=== PATIENT | female | born 1970 | race Caucasian/White ===

== ENCOUNTER 2022-12-06 16:14 | Emergency (ER) | payer BC, SELFPAY ==
[2022-12-06 16:23] VITALS: BP 130/76; PULSE 99; RESP 18; TEMP 36.9; O2SAT 98
--- NOTE | 2022-12-06 16:32 | ED.URI ---
HPI - URI/Sore Throat General Chief Complaint: Upper Respiratory Infection Stated Complaint: Congestion,Headache Time Seen by Provider: 12/06/22 16:52 Source: patient, RN notes reviewed and old records reviewed Mode of arrival: ambulatory Limitations: no limitations History of Present Illness HPI Narrative: 52-year-old female presents to the [facility] with sinus congestion and a frontal headache for 2 days. Has not taken anything for her symptoms. Denies fevers. Denies chest pain or shortness of breath. No abdominal pain Related Data Allergies Allergy/AdvReac Type Severity Reaction Status Date / Time amoxicillin Allergy Unknown Hives Verified 12/06/22 16:28 bupropion Allergy Unknown Hives Verified 12/06/22 16:28 methimazole Allergy Unknown Hives Verified 12/06/22 16:28 Sulfa (Sulfonamide Allergy Unknown Hives Verified 12/06/22 16:28 Antibiotics) Review of Systems Review of Systems: All systems reviewed & are unremarkable except as noted in HPI and below Constitutional: Constitutional: Reports no additional constitutional complaints Eyes: Eyes: Reports no additional eye complaints ENT: Reports as per HPI Cardiovascular: Cardiovascular: Reports no additional cardiovascular complaints, Denies chest pain and Denies dyspnea Respiratory: Respiratory: Reports no additional respiratory complaints, Denies chest congestion, Denies cough and Denies dyspnea Gastrointestinal: Gastrointestinal: Reports no additional gastrointestinal complaints, Denies abdominal pain, Denies nausea and Denies vomiting Musculoskeletal: Musculoskeletal: Reports no additional musculoskeletal complaints Integumentary/Breasts: Skin/Breast: Reports system reviewed and no additional complaints, except as docu Neurologic: Reports system reviewed and no additional complaints, except as documented Psychiatric: Psychiatric: Reports no additional psychiatric complaints Allergic/Immunologic: Allergic/Immunologic: Reports no additional allergic/immunologic complaints PMFSH Social History Social History Smoking status: Former smoker Smoking end date: 11/17/09 Alcohol intake: current Comments At the time of my signature, I reviewed and agree with the nursing past medical, surgical, social, and family history. There is no relevant family history pertinent to the patient complaint. Exam Const: General: cooperative, healthy appearing, comfortable, no acute distress, well developed, alert and well nourished Nutritional Appearance: well nourished Orientation/consciousness: patient oriented x3 Limitations: no limitations HENMT: Head: normal to inspection Ears: hearing grossly normal bilaterally and external ears normal Face/Nose/Sinus: Normal external nose present, Normal nares present, Normal nasal mucous membranes and turbinates present and normal facial exam Face and sinus: normal facial exam Mouth: Yes Normal oral and palatal mucosa present, Yes lip normal and Yes moist mucous membranes Throat: posterior oropharynx normal and uvula midline Eyes: General: appearance normal, both eyes and all related structures Alignment and Position: alignment normal Periorbital: periorbital findings normal Conjunctivae: conjunctivae normal Pupils: Equal, round and reactive pupils present EOM: EOMs intact bilaterally Neck: Neck: normal visual inspection, full ROM, no lymphadenopathy and no meningeal signs Chest: Chest palpation & inspection: normal inspection of the chest Resp: Effort & Inspection: normal respiratory effort and able to speak in complete sentences Auscultation: clear to auscultation bilaterally, no crackles, no rales, no rhonchi and no wheezes Cardio: Rate: regular rate Rhythm: regular rhythm Back/Spine/Pelvis: Cervical Spine: cervical ROM normal Thoracic/Lumbar Spine: No thoracic spinal tenderness Skin: General skin exam: normal color and no rashes or lesions noted Lesions: n
== END 2022-12-06 17:03 | disposition home or self-care (01) ==
PROVIDERS: Emergency Provider Nurse Practitioner
DX: J32.9 Chronic sinusitis, unspecified (principal); Z87.891 Personal history of nicotine dependence; Z20.822 Contact with and (suspected) exposure to COVID-19
CPT/HCPCS: 87426; 87804; 99213; C9803; G0463

== ENCOUNTER → 2023-08-07 15:27 | Outpatient (CLI) | payer BC, SELFPAY ==
--- NOTE | ~2023-08-07 | US_ITS ---
Thyroid ultrasound. Clinical History: Thyroid nodule Findings: Real-time sonography of the thyroid gland was performed. The right lobe measures 4.6 x 1.5 x 1.1 cm. The left lobe measures 5.3 x 2.2 x 1.6 cm. The isthmus is 2 mm in AP diameter. There is a 1.1 x 0.7 0.8 cm heterogeneous, hypoechoic circumscribed nodule at the right lower pole. T here is an additional 0.5 cm hypoechoic nodule at the right lower pole. There is a dominant heterogeneous nodule at the left lower pole measuring 2.7 x 1.8 x 1.6 cm, with so me peripheral calcification and mixed echogenicity. There is a 0.9 cm cystic nodule at the left midpo le. Impression: Bilateral thyroid nodules, as detailed above. Given size of the dominant heterogeneous nodule at the left lower pole, FNA recommend to establish a histologic diagnosis.. Reviewed, dictated and finalized at [facility]. Impression: Bilateral thyroid nodules, as detailed above. Given size of the dominant hetero geneous nodule at the left lower pole, FNA recommend to establish a histologic diagnosis..
== END ==
PROVIDERS: PCP Nurse Practitioner; Visit Provider Nurse Practitioner
DX: E04.2 Nontoxic multinodular goiter (principal)
CPT/HCPCS: 76536

== ENCOUNTER 2025-01-17 16:52 | Emergency (ER) | payer BC, SELFPAY ==
[2025-01-17 16:57] VITALS: BP 115/75; PULSE 118; RESP 24; TEMP 37.7; O2SAT 97
--- NOTE | 2025-01-17 17:11 | ED.URI ---
HPI - URI/Sore Throat General Chief Complaint: Upper Respiratory Infection Stated Complaint: flu like Time Seen by Provider: 01/17/25 17:11 Source: patient Mode of arrival: ambulatory Limitations: no limitations History of Present Illness HPI Narrative: 54-year-old female presents with complaint of cough, congestion, fatigue, body aches, chills, fever starting yesterday evening. Denies nausea vomiting diarrhea. No chest pain or shortness of breath. Taking Tylenol to treat fever. Took a does prior to arrival. All systems reviewed and negative except as noted above. Related Data Allergies Allergy/AdvReac Type Severity Reaction Status Date / Time amoxicillin Allergy Unknown Hives Verified 01/17/25 16:58 bupropion Allergy Unknown Hives Verified 01/17/25 16:58 methimazole Allergy Unknown Hives Verified 01/17/25 16:58 Sulfa (Sulfonamide Allergy Unknown Hives Verified 01/17/25 16:58 Antibiotics) Review of Systems Review of Systems: CONSTITUTIONAL: Reports fever, chills, or sweats. EYES: Denies visual changes, redness, or discharge. ENT: reports rhinorrhea, congestion. Denies sore throat, or otalgia. CARDIOVASCULAR: Denies chest pain, palpitations, or edema. RESPIRATORY: reports cough. Denies dyspnea. GASTROINTESTINAL: Denies abdominal pain, nausea, vomiting, or diarrhea. GENITOURINARY: Denies dysuria or hematuria. SKIN: Denies rash or itching. MUSCULOSKELETAL: Denies back pain, joint pain, or myalgia. NEUROLOGIC: Denies headache, numbness, or weakness. PSYCHIATRIC: Denies anxiety or depression. All other systems reviewed are negative, except as documented in HPI. PMFSH Social History Social History Smoking status: Former smoker Smoking end date: 11/17/09 Alcohol intake: current Comments At time of signature, agree with nursing past medical, surgical, social and family history. There is no relevant family history pertinent to the presenting complaint. Exam Narrative: GENERAL: This is a well-nourished, well-developed patient, ill-appearing but in no acute distress HEAD: normocephalic, atraumatic. EYES: PERRL. Sclera clear/white. Vision is grossly intact. EARS: External ears normal, auditory canals clear and without drainage, TMs normal without perforation. Hearing grossly intact. NOSE: External nose normal with no obvious nasal discharge, nares without redness, no rhinorrhea. THROAT: Mucous membranes moist, posterior pharynx clear. NECK: Neck supple, non-tender without lymphadenopathy, masses or thyromegaly. CARDIOVASCULAR: Regular rate and rhythm without murmurs, gallops, or rubs. RESPIRATORY: Clear to auscultation. Breath sounds equal bilaterally. No wheezes, rales, or rhonchi. SKIN: warm, Dry, intact with no suspicious lesions or rash, good texture and turgor. NEURO: awake, alert, and oriented to person, place and time. There were no obvious focal neurologic abnormalities. EXTREMITIES: No joint tenderness, effusion, or edema noted. Course Course Level of Care: Express Care Visit Vital Signs Vital signs: Vital Signs Temperature 37.7 C H 01/17/25 16:57 Pulse Rate 118 H 01/17/25 16:57 Respiratory Rate 24 H 01/17/25 16:57 Blood Pressure 115/75 01/17/25 16:57 Pulse Oximetry 97 01/17/25 16:57 Oxygen Delivery Room Air 01/17/25 16:57 Temperature 37.7 C H 01/17/25 16:57 Pulse Rate 118 H 01/17/25 16:57 Respiratory Rate 24 H 01/17/25 16:57 Blood Pressure 115/75 01/17/25 16:57 Pulse Oximetry 97 01/17/25 16:57 Oxygen Delivery Room Air 01/17/25 16:57 reviewed MDM - URI/Sore Throat MDM Narrative Medical decision making narrative: negative COVID and influenza. Testing less than 24 hours after symptoms started. It is possible false negative. Patient is well-appearing, nontoxic. Lungs clear to auscultation. Hemodynamically stable. Recommend increase fluids and take [id number] medications to treat viral symptoms. Patient agrees with plan of care. Please be advised this is a medical document. It is intended for [id number] communication. It is written in medical language and may contain unfamiliar abbreviations or verbiage. Medical documents are intended to carry relevant information, facts as evident, and the clinical opinion of the practitioner at the time of the encounter. This report may have been done utilizing a voice recognition system. Attempts have been made to correct errors. However, there may be uncorrected grammatical, spelling, and recognition errors present. The file time of this note does not necessarily represent the time of service. Differential Diagnosis Differential diagnosis: Likely upper respiratory infection, viral infection and influenza Discharge Plan Discharge Clinical Impression: Viral upper respiratory tract infection with cough Patient Disposition: Home, Self-Care Condition: Stable Instructions: Upper Respiratory Infection (ED) Additional Instructions: Your influenza and COVID test were negative today. Your symptoms are viral and may last 10-14 days. Take Tylenol every 6-8 hours as needed for pain and fever. Take [id number] Mucinex DM to treat cough. Drink at least 64 oz water a day. See your doctor if symptoms are not improving. If you have chest pain or shortness of breath or concern for dehydration go to the ER. Patient Language: Uzbek Prescriptions: No Action methylprednisolone [Medrol (Antione)] 4 mg tablets,dose pack See Rx Instructions PO .COMPLEX Qty: 21 0RF Rx Instructions: orally per package directions fluticasone propionate [Flonase Allergy Relief] 50 mcg/actuation spray,suspension 2 spray intranasal DAILY Qty: 16 0RF Rx Instructions: administer into each nostril Follow-up/Referrals: Brendan,ASTON Davidson [Primary Care Provider] - Stand Alone Forms: Work/School Release IP Time of Disposition: 17:24
[2025-01-17 17:21] LABS: EDCOVIDSCREEN Negative (Negative); EDINFLUASCREEN Negative (Negative); EDINFLUBSCREEN Negative (Negative)
== END 2025-01-17 17:26 | disposition home or self-care (01) ==
PROVIDERS: Emergency Provider Nurse Practitioner Family; PCP Nurse Practitioner
DX: J06.9 Acute upper respiratory infection, unspecified (principal); R05.9 Cough, unspecified; Z20.822 Contact with and (suspected) exposure to COVID-19; Z87.891 Personal history of nicotine dependence
CPT/HCPCS: 87426; 87804; 99213; G0463